=== PATIENT | male | born 1980 | race African-American/Black ===

== ENCOUNTER 2016-11-13 11:30 | Emergency (ER) | payer OTHER ==
[2016-11-13] MEDS ORDERED: IBUPROFEN 800 MG TABLET PO ONE (12:17)
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
[2016-11-13 14:01] VITALS: BP 132/85
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
== END 2016-11-13 14:03 | disposition home or self-care (01) ==
LOC: ER 11:30
DX: S16.1XXA Strain of muscle, fascia and tendon at neck level, initial encounter (principal); S00.83XA Contusion of other part of head, initial encounter; S80.00XA Contusion of unspecified knee, initial encounter; V43.52XA Car driver injured in collision with other type car in traffic accident, initial encounter; M54.2 Cervicalgia; R51 Headache; M54.5 Low back pain; F17.210 Nicotine dependence, cigarettes, uncomplicated; Z71.6 Tobacco abuse counseling
CPT/HCPCS: 70450; 99284